=== PATIENT | female | born 1980 | race Caucasian/White ===

== ENCOUNTER 2023-09-18 07:03 | Emergency (ER) | payer BC, SELFPAY ==
[2023-09-18 07:10] VITALS: BP 134/96
[2023-09-18 07:41] VITALS: BMI 23.4
[2023-09-18 07:42] VITALS: BP 136/88
--- NOTE | 2023-09-18 07:54 | ED.GENMED ---
History of Present Illness
General
Chief Complaint: Abdominal Symptoms
Source: patient and records
Exam Limitations: none
Time Seen by Provider: 09/18/23 07:13
Nursing documentation reviewed up to this point in time: agreed with
Travel History
Have you had any contact with someone who has COVID-19?: No
Do you have any symptoms of coronavirus? Fever > 100 degrees, chills, cough, shortness of breath, sore throat, loss of taste or smell, muscle aches, or headache?: No
History of Present Illness
History of Present Illness:
Patient is a 42-year-old type I diabetic with a history of fibromyalgia who presents to the emergency department complaining of pain and a lump in her left upper quadrant. Patient noticed a lump couple months ago and states it has gotten worse over
the past few days has become painful. Patient's father of esophageal cancer in the past year. Patient went to her family doctor and was ordered a CAT scan. However last night patient could not sleep due to pain. Patient denies any nausea,
vomiting, diarrhea or constipation. Patient denies any symptoms. Patient denies any chest pain, shortness of breath or palpitations. Patient denies any fever or chills.
Past History
Past History
ED Past Medical History: Asthma (Asthmatic bronchitis ), IDDM and Other (Fibromyalgia)
ED Past Surgical History: Urological
Social History
Tobacco: Former smoker
Alcohol: None
Drug: None
Personal: Single
Living: alone
Employment: Employed
Family History
Family History: Other (Noncontributory )
Review of Systems
Review of Systems
All Other Systems: ROS reviewed and negative except as documented in HPI and ROS
Constitutional: Denies fever or chills
EENT: Reports no symptoms
Respiratory: Reports no symptoms
Cardiac: Reports no symptoms
ABD/GI: Reports abdominal pain; Denies nausea, vomiting, diarrhea, constipated, bloody stools, black stools or anorexia
: Reports no symptoms
Musculoskeletal: Reports no symptoms
Skin: Reports no symptoms
Neurological: Reports no symptoms
Hematologic/Lymphatic: Reports no symptoms
Psychiatric: Reports no symptoms
Phy Exam
Physical Exam
Physical Exam:
Physical Exam
General: mild distress, alert and appropriate, well nourished, well hydrated
HENT: Normocephalic, supple with no lymphadenopathy, no thyromegaly
Eyes: Clear sclera, conjuctiva without injection
Heart: Regular rhythm and rate. No S3, S4. No murmur.
Lungs: No respiratory distress, no stridor, lung sounds clear and equal bilaterally, chest wall symmetrical and mild tenderness along the costal margin of rib left ninth and 10th without crepitus or deformity
Abdomen: Soft, mild to moderate tenderness in the mid epigastric/left upper quadrant without guarding or rebound, no organomegaly, no CVA tenderness, BS good
Neuro: Alert and oriented x 3, CN II - XII intact, no motor focality, no cerebellar dysfunction
Skin: no rash
Psychiatric: well kept. interactive and cooperative
Extremities: No edema, cyanosis, tenderness, Good and equal peripheral pulses.
Course
Orders/Labs/Results
Orders:
Orders
09/18/23 07:24
0.9% Sodium Chloride 1000 ml [Nss] 1,000 ml IV BOLUS
Iohexol [Omnipaque] See Protocol PO NOW STA
Test Result ONCE
09/18/23 07:25
CT Abd/pel W Iv And Oral Contr Urgent
Comment:
Reason For Exam: LUQ tender ?mass
09/18/23 07:57
Complete Blood Count/With Diff Urgent
Comprehensive Metabolic Panel Urgent
HCG, Serum Qualitative Screen Urgent
Lipase Urgent
09/18/23 08:00
Urinalysis Reflex To Culture Urgent
Date Specimen was Collected: 09/18/23
Time Specimen was Collected: 07:59
Urine Microscopic Reflex Cult Urgent
Abnormal Lab Results
09/18/23 09/18/23
07:57 08:00
RBC 4.15 L 10^6/uL
(4.20-5.40)
MCH 32.5 H pg
(27.0-31.0)
Chloride 109 H mmol/L
(98-107)
Glucose 124 H mg/dl
(70-99)
Urine Ketones Trace A
(Negative)
Urine Bilirubin 1+ A
(Negative)
Urine Urobilinogen 2+ A
(Neg - 1+)
Leukocyte Esterase Rfl Trace A
(Negative)
Urine Bacteria (Reflex) Few A
(Negative)
Urine Glucose 1+ A
(Negative)
09/18/23 07:57
09/18/23 07:57
Vital Signs
Initial and Last Documented VS:
Initial Vital Signs
Temp Pulse Resp BP Pulse Ox
98.0 F 70 16 134/96 98
09/18/23 07:10 09/18/23 07:10 09/18/23 07:10 09/18/23 07:10 09/18/23 07:10
Last Documented Vital Signs
Temp Pulse Resp BP Pulse Ox
98.0 F 70 16 115/70 96
09/18/23 07:10 09/18/23 07:10 09/18/23 07:10 09/18/23 12:00 09/18/23 12:00
*Radiology
Radiology exam reviewed: radiology read reviewed (Nothing new on the CT scan)
*Pulse Oximetry
Patient hypoxic: no
*EKG
Interpreted by ED Provider?: NA
*It [employer]iter Interpretation
Rate: It [employer]iter- N/A
*Critical Care Note
Total Time (30-74mins, 75-104mins- exclusive of procedures): Not Applicable
Update Note
Update Note:
Patient will be placed on anti-inflammatories for few days. Patient to be discharged.
ED Attending Note
-
Portions of this chart may have been created with voice recognition software.� Occasional wrong word or��sound alike� substitutions may have occurred due to the inherent limitations of voice recognition software.
Discharge Plan
Departure
Patient Disposition: Home (Routine Discharge)
Date of Disposition: 09/18/23
Time of Disposition: 12:35
Patient with high blood pressure during this ER visit?: No
Condition: Fair
Covid-19: Not Applicable
Discharge Problem:
Acute costochondritis, Nonspecific abdominal pain
Instructions: Costochondritis, Abdominal Pain
Prescriptions:
New
ketorolac 10 mg tablet
10 mg PO QID PRN (Reason: pain) 5 Days Qty: 20 0RF
No Action
tramadol 50 MG tablet
100 mg PO BID
gabapentin 600 MG tablet
600 mg PO TID
atorvastatin 10 MG tablet
10 mg PO QPM
naproxen 500 MG tablet
500 mg PO BID
insulin lispro [Humalog KwikPen Insulin] 100 UNIT/ML insulin pen
12 units SC TID
Patient Comments:
with meals, sliding scale 'every 50 increase in bs add 1 unit'
Levemir Flexpen:
22 units SC BID
lisinopril 5 MG tablet
5 mg PO DAILY Qty: 30 0RF
prochlorperazine maleate 10 MG tablet
10 mg PO Q8HPRN PRN (Reason: headache and nausea) Qty: 10 0RF
Referrals:
Robert Pelayo MD [Family Provider] - Follow up in 5-7 days
Interventions
Interventions:
*Risk Screen - Suicide Last Done: 09/18/23 07:41
*General Assessment Last Done: 09/18/23 07:41
*Neglect/Abuse Screening Last Done: 09/18/23 07:41
ED- Fall Risk Assessment Last Done: 09/18/23 07:41
*ED COVID-19 Vaccine History Last Done: 09/18/23 07:10
KV-Iaeefh-Qolpnjdyvs Assessment Last Done: 09/18/23 07:41
Discharge Date and Time
Print Language: GRENADIAN
[2023-09-18] MEDS: NSS 1000 IV (07:58)
[2023-09-18] MEDS: OMNIPAQUE 50 ML PO (07:58)
[2023-09-18 08:00] VITALS: BP 134/88
[2023-09-18 08:11] LABS: Urine Albumin Trace (Neg - Trace); Urine Bilirubin 1+ (Negative); Urine Character Clear (Clear); Urine Color Yellow; Urine Glucose 1+ (Negative); Urine Ketone Trace (Negative); Urine Leukocyte Trace (Negative); Urine Nitrite Negative (Negative); Urine Occult Blood Negative (Negative); Urine Urobilinogen 2+ (Neg - 1+)
[2023-09-18 08:12] LABS: % Basophils 0.5 % (0-2); % Eosinophils 3.6 % (0-6); % Immature Granulocytes 0.2 % (0-0.5); % Lymphocytes 38.4 % (20.5-51.1); % Monocytes 6.1 % (1.7-9.3); % Neutrophils 51.2 % (42.2-75.2); Absolute Eosinophils 0.2 10^3/uL (0-0.7); Absolute Lymphocytes 2.2 10^3/uL (1.2-3.4); Absolute Monocytes 0.4 10^3/uL (0.1-0.6); Hemoglobin 13.5 g/dL (12.0-16.0); Mean Corp Hgb Conc. 35.5 g/dL (33.0-37.0); Mean Corpuscular Hgb 32.5 pg (27.0-31.0); Mean Corpuscular Volume 91.6 fL (81.0-99.0); Mean Platelet Volume 10.2 fL (7.4-10.4); Nucleated Red Blood Cells % 0 %; Platelet Count 267 10^3/uL (130-400); Red Blood Cell Count 4.15 10^6/uL (4.20-5.40); White Blood Cell Count 5.8 10^3/uL (4.8-10.8)
[2023-09-18 08:22] LABS: Urine Mucus Moderate; Urine Squamous Cell >30 /LPF (Few)
[2023-09-18 08:23] LABS: Urine Bacteria Few (Negative); Urine Red Blood Cell 0-2 /HPF (0-2); Urine White Cell 0-2 /HPF (0-5)
[2023-09-18 08:29] LABS: HCG, Serum Qualitative Screen Negative
[2023-09-18 08:30] LABS: ALT (SGPT) 27 U/L (0-35); AST (SGOT) 26 U/L (14-36); Albumin 3.8 g/dl (3.5-5.0); Alkaline Phosphatase 49 U/L (38-126); Blood Urea Nitrogen 13 mg/dl (7-17); Calcium 9.2 mg/dl (8.4-10.2); Carbon Dioxide 23 mmol/L (22-30); Chloride 109 mmol/L (98-107); Estimated Creatinine Clearance 112 ml/min; Glucose 124 mg/dl (70-99); Lipase 57 U/L (23-300); Potassium 3.9 mmol/L (3.5-5.1); Sodium 138 mmol/L (135-145); Total Bilirubin 0.6 mg/dl (0.2-1.3); Total Protein 6.3 g/dl (6.3-8.2); eGFR > 60.00
[2023-09-18 09:00] VITALS: BP 145/76
[2023-09-18 11:07] VITALS: BP 127/91
[2023-09-18 12:00] VITALS: BP 115/70
== END 2023-09-18 12:50 | disposition home or self-care (01) ==
LOC: EMR 07:03
PROVIDERS: EMERGENCY PHYSICIAN Emergency Medicine; FAMILY PHYSICIAN Internal Medicine Geriatric Medicine
DX: M94.0 Chondrocostal junction syndrome [Tietze] (principal); R10.9 Unspecified abdominal pain; M79.7 Fibromyalgia; Z87.891 Personal history of nicotine dependence
CPT/HCPCS: 99285; 96360; 74177; 80053; 81003; 81015; 83690; 84703; 85025; Q9967

== ENCOUNTER → 2023-10-14 15:42 | Outpatient (REF) | payer BC, SELFPAY | LOC: RAD 15:42 | PROVIDERS: ATTENDING PHYSICIAN Nurse Practitioner Primary Care | DX: R19.06 Epigastric swelling, mass or lump (principal); R10.816 Epigastric abdominal tenderness | CPT/HCPCS: 76705 ==

== ENCOUNTER → 2024-04-25 13:45 | Outpatient (REF) | payer BC, SELFPAY | LOC: WDC 13:45 | PROVIDERS: ATTENDING PHYSICIAN Nurse Practitioner Primary Care | DX: Z12.31 Encounter for screening mammogram for malignant neoplasm of breast (principal) | CPT/HCPCS: 77063; 77067 ==

== ENCOUNTER → 2024-05-02 09:37 | Outpatient (REF) | payer BC, SELFPAY | LOC: WDC 09:37 | PROVIDERS: ATTENDING PHYSICIAN Nurse Practitioner Primary Care | DX: R92.8 Other abnormal and inconclusive findings on diagnostic imaging of breast (principal) | CPT/HCPCS: 76642 ==